=== PATIENT | male | born 1985 | race African-American/Black ===

== ENCOUNTER 2022-12-27 18:41 | Inpatient (IN) | payer MEDICAID, OTHER ==
[~2022-12-27] VITALS: Ht 177.8 cm; Wt 61.7 kg
[~2022-12-27 18:41] MED LIST: INSU100C10 SQ; INSU100C7 SQ; LISI10TA30 PO
[2022-12-27] MEDS ORDERED: IV NS 0.9% 1,000 ML BAG IV ONE ×2 (19:30→21:00)
[2022-12-27] MEDS ORDERED: HYDROCODONE/APAP 10/325MG TABLET PO ONE (19:30)
[2022-12-27] MEDS ORDERED: hydrALAZINE HCL IV 20 MG VIAL IV ONE (19:30)
[2022-12-27] MEDS ORDERED: INSULIN REGULAR, HUMAN 100 UNIT/ML 10 ML VIAL IV ONE (19:30)
[2022-12-27 20:00] LABS: BASOPHILS % (AUTO) 0.7 % (0.0-2.0); EOSINOPHILS % (AUTO) 0.2 % (0.0-6.0); HEMATOCRIT 30 % (39-51); HEMOGLOBIN 9.2 g/dL (13.5-17.5); LYMPHOCYTES # (AUTO) 0.5 K/uL (0.8-4.8); LYMPHOCYTES % (AUTO) 10.6 % (20.0-44.0); MEAN CORPUSCULAR HGB CONC 31 g/dl (31.0-36.0); MEAN CORPUSCULAR VOLUME 84 fL (80-96); MONOCYTES # (AUTO) 0.3 K/uL (0.1-1.30); MONOCYTES % (AUTO) 5.9 % (2.0-12.0); NEUTROPHILS # (AUTO) 4.3 K/uL (1.8-8.9); NEUTROPHILS % (AUTO) 82.6 % (43.0-81.0); PLATELET COUNT (AUTO) 109 K/uL (150-450); RED BLOOD CELL COUNT(AUTO) 3.52 MIL/uL (4.5-6.0); WHITE BLOOD COUNT (AUTO) 5.2 K/uL (4.3-11.0)
[2022-12-27] MEDS ORDERED: hydrALAZINE HCL IV 20 MG VIAL ONE (20:00)
[2022-12-27] MEDS ORDERED: HYDROCODONE/APAP 10/325MG TABLET ONE (20:00)
--- NOTE | 2022-12-27 20:00 | NUR ---
BIBRA FROM THE STREETS C/O GENERALIZED WEAKNESS, MISSED DIALYSIS X 1 WEEK HYPERTENSIVE, BG READING HIGH IN THE FIELD. PLACED IN BED, AAOX4, BREATHING EVEN AND UNLABORED SATURATING AT 97%RA
[2022-12-27] MEDS ORDERED: INSULIN REGULAR, HUMAN 100 UNIT/ML 10 ML VIAL ONE (20:01)
[2022-12-27 20:19] LABS: ALANINE AMINOTRANSFERASE 51 U/L (12-78); ALBUMIN 3.4 g/dL (3.4-5.0); ALKALINE PHOSPHATASE 130 U/L (46-116); ASPARTATE AMINOTRANSFERASE 30 U/L (15-37); BILIRUBIN,DIRECT 0.1 mg/dL (0.0-0.2); BILIRUBIN,TOTAL 0.3 mg/dL (0.2-1.0); CALCIUM, SERUM 8.1 mg/dL (8.5-10.1); CARBON DIOXIDE 25 mmol/L (21-32); CHLORIDE 95 mmol/L (98-107); POTASSIUM 4.4 mmol/L (3.5-5.1); SODIUM SERUM 134 mmol/L (136-145); TOTAL PROTEIN, SERUM 7.6 g/dL (6.4-8.2); UREA NITROGEN, BLOOD 55 mg/dL (7-18)
[2022-12-27 20:30] LABS: CREATININE 8.7 mg/dL (0.6-1.3); GLUCOSE 656 mg/dL (74-106)
--- NOTE | 2022-12-27 20:55 | NUR ---
SWAB FOR COVID19 SENT TO LAB
--- NOTE | 2022-12-27 21:48 | NUR ---
DR. KRYSTAL LÓPEZ SPEAKING TO LUPE MANCINI NP REGARDING ADMISSION
[2022-12-27] MEDS ORDERED: MAG HYDROX/AL HYDROX/SIMETH 30 ML UDC PO PRN (22:30)
[2022-12-27] MEDS ORDERED: MAGNESIUM HYDROXIDE 30 ML UDC PO PRN (22:30)
[2022-12-27] MEDS ORDERED: HYDROCODONE/APAP 10/325MG TABLET PO PRN (22:30)
[2022-12-27] MEDS ORDERED: Z GUARD REMEDY 4 OZ OINT TP PRN (22:30)
[2022-12-27] MEDS ORDERED: ACETAMINOPHEN 325 MG TABLET PO PRN (22:30)
[2022-12-27] MEDS ORDERED: ZOLPIDEM TARTRATE 5 MG TABLET PO PRN (22:30)
--- NOTE | 2022-12-27 22:56 | NUR ---
REPORT GIVEN TO BETITO RN ROOM 304-2 FOR JESSICA
[2022-12-27 23:11] VITALS: BP 180/96
--- NOTE | 2022-12-27 23:30 | NUR ---
ADMISSION NOTES PATIENT BROUGHT IN UNIT AT AROUND 2311 ACCOMPANIED BY 2 ER PERSONNEL VIA STRETCHER. PATIENT IS A/OX4. NO S/S OF APPARENT DISTRESS IN ROOM AIR. C/O PAIN AND TO QUOTE "I NEED TO TALK TO THE DOCTOR ABOUT MY PAIN MEDS, BECAUSE THE NORCO IS NOT CUTTING IT". PATIENT READING NSR ON THE TELE MONITOR. LEFT AV FISTULA THRILL FELT AND BRUIT HEARD UPON AUSCULTATION. WISHES TO BE FULL CODE AT THIS TIME. BELONGINGS CHECKED AND SIGNED FOR. NEW ID BAND ON PATIENT. RT. ARM IV #18G NOTED RUNNING NS OPEN TO GRAVITY FROM ER. PATIENT ORIENTED IN THE UNIT AND THE USE OF CALL LIGHT. PER PATIENT HE IS UP-TO-DATE WITH HIS VACCINATIONS INCLUDING COVID. DENIES SMOKING AND DRINKING ALCOHOL. WISH TO BE PLACED IN A SNF-- PER PATIENT HE RENTS A ROOM BUT NEEDS SOMEONE TO TAKE CARE OF HIM BECAUSE HE IS DISABLED. NEEDING HD CHAIR TIME WELL. ALL NEEDS ATTENDED. SAFETY IN PLACE. WILL FOLLOW THROUGH DOCTOR'S ORDERS AND CONTINUE WITH THE PATIENT'S PLAN OF CARE.
--- NOTE | 2022-12-27 23:37 | NUR ---
noc rn note Hospitalist Silvia Argueta made aware of BP 180/96 upon admission. Verbal order received of Apresoline 10mg IV ONCE.
--- NOTE | 2022-12-27 23:53 | NUR ---
noc rn note Hospitalist talked to patient at bedside. Verbal order for ONE time Dilaudid 1mg IV received. order read back. awaiting pharmacy to verify med.
[2022-12-28] MEDS ORDERED: HYDROMORPHONE 1 MG/1 ML DISP.SYRIN IV ONE
[2022-12-28] MEDS ORDERED: hydrALAZINE HCL IV 20 MG VIAL IV ONE
[2022-12-28 01:02] VITALS: BP 152/82
--- NOTE | 2022-12-28 01:02 | NUR ---
noc rn note - bp re-assessment BP 152/82 after Apresoline.
[2022-12-28] MEDS: ONDANSETRON HCL/PF 4 MG/2 ML VIAL IVP PRN (03:05)
--- NOTE | 2022-12-28 03:05 | NUR ---
noc rn note patient had x1 emesis just now. given Zofran 4mg as ordered PRN. will re-assess.
[2022-12-28] MEDS ORDERED: DEXTROSE 50%-WATER 50 ML DISP.SYRIN IV PRN (03:30)
[2022-12-28 04:00] VITALS: BP 148/98
[2022-12-28] MEDS: BLOOD SUGAR DIAGNOSTIC 1 EACH STRIP VI SCH ×4 (06:35→21:59)
[2022-12-28] MEDS: INSULIN REGULAR, HUMAN 100 UNIT/ML 3 ML VIAL SQ PRN ×3 (06:37→16:39)
--- NOTE | 2022-12-28 06:49 | NUR ---
noc rn closing note patient sleeping comfortably in bed. no s/s of apparent distress. pain managed with medication. Nausea and vomiting relieved with medication. rt. fa 18g intact and patent on saline lock only. reading NSR throughout shift. all needs attended. all scheduled medication administered. safety in place. endorse to morning shift rn for continuity of care.
--- NOTE | 2022-12-28 07:40 | NUR ---
MANAGER ADULT OPENING NOTE RECEIVED PATIENT ASLEEP IN BED, EASILY AWAKENED. A/OX4. ABLE TO MAKE NEEDS KNOWN. BREATHING EVEN AND NON-LABORED ON RA. NO S/S OF DISTRESS NOTED AT THIS TIME. NO C/O PAIN OR DISCOMFORT AT THIS TIME. IV ACCESS R FA #18G, INTACT AND PATENT, SL. SAFETY MEASURES IN PLACE: BED LOCKED AND AT LOWEST POSITION, RAILS UP X2, CALL ELLISON WITHIN REACH. WILL CONTINUE TO MONITOR AND ASSIST.
[2022-12-28 08:00] VITALS: BP 158/92
[2022-12-28 09:44] LABS: BASOPHILS # (AUTO) 0.1 K/uL (0.0-0.2); BASOPHILS % (AUTO) 0.9 % (0.0-2.0); EOSINOPHILS % (AUTO) 2.1 % (0.0-6.0); HEMATOCRIT 25 % (39-51); LYMPHOCYTES # (AUTO) 1.1 K/uL (0.8-4.8); LYMPHOCYTES % (AUTO) 20.1 % (20.0-44.0); MEAN CORPUSCULAR HGB CONC 33 g/dl (31.0-36.0); MEAN CORPUSCULAR VOLUME 83 fL (80-96); MONOCYTES # (AUTO) 0.4 K/uL (0.1-1.30); MONOCYTES % (AUTO) 7.3 % (2.0-12.0); NEUTROPHILS # (AUTO) 3.8 K/uL (1.8-8.9); NEUTROPHILS % (AUTO) 69.6 % (43.0-81.0); PLATELET COUNT (AUTO) 107 K/uL (150-450); RED BLOOD CELL COUNT(AUTO) 2.95 MIL/uL (4.5-6.0); WHITE BLOOD COUNT (AUTO) 5.4 K/uL (4.3-11.0)
--- NOTE | 2022-12-28 10:16 | NUR ---
WOUND CARE CONSULT: PT PRESENTS WITH DRY ULCERS TO BILATERAL FEET, PRESENT ON ADMISSION. DR COULTER CALLED FOR DPM CONSULT. IN AGREEMENT WITH PLAN OF CARE.
[2022-12-28 10:21] LABS: CALCIUM, SERUM 7.5 mg/dL (8.5-10.1); MAGNESIUM 1.9 mg/dL (1.8-2.4); PHOSPHORUS 4.6 mg/dL (2.5-4.9); POTASSIUM 3.7 mmol/L (3.5-5.1)
[2022-12-28] MEDS: HYDROMORPHONE 1 MG/1 ML DISP.SYRIN IV PRN ×4 (10:30→23:34)
--- NOTE | 2022-12-28 10:30 | NUR ---
RN NOTE PATIENT WAS COMPLAINING OF HAVING BACK PAIN. OFFERED HIM NORCO, PT STATED HE WILL GET NAUSEOUS WITH NORCO. REQUESTED DILAUDID. DR SOTO NOTIFIED. ORDERED DILAUDID 1MG IV PRN Q4H. ADMINISTERED DILAUDID TO PT. WILL CONTINUE TO MONITOR.
[2022-12-28 10:31] LABS: CREATININE 8.8 mg/dL (0.6-1.3)
[2022-12-28 12:00] VITALS: BP 132/91
--- NOTE | 2022-12-28 14:46 | NUR ---
SS Consult: ss Consult requested for homelessness. The pt. is a 37-year-old Black male pt. who is currently admitted to [facility] due to ESRD HD per EMR. Upon SS consult, the pt. is Alert & Oriented x 4 and makes avoidant eye contact. The pt. appears unkempt. Pt. has irritable mood & affect. Pt.s speech is low and clear.Pt. screams his answers at times when he becomes upset. Pt. was cooperative throughout interview and presents guarded. The pt. denies SI/HI and denies hallucinations. SW explored pt.s living situation. Patient states she is currently residing in shared housing where he rents a room [[address] [address]]. SW explored pt.s mental health Hx. Pt. denies any mental health Hx. SW explored pt.s drug & ETOH use. Pt. denies drug use and alcohol. Per pt. he normally ambulates independently but has been having trouble walking due to weakness. Pt. states he receives food stamps and SSI. Plan: Per pt. he would like SNF placement. SW notified Irene ELMORE. Pt. is in need of HD chair time. The pt. states if he does not qualify for SNF the pt. will be returning back to his home [[address] [address]] where he rents a room. Pt. stated he is not in need of any referrals/ resources. Addendum: 12/28/22 at 1451 by QUIQUE DONG IKER discussed with pt.'s nurseShila.
[2022-12-28 15:57] VITALS: BP 155/100
[2022-12-28] MEDS: GENTAMICIN 0.1% OINT 15 GM TUBE TP SCH (16:15)
[2022-12-28] MEDS: AMMONIUM LACTATE 227 GM BOTTLE TP SCH (16:16)
--- NOTE | 2022-12-28 18:30 | NUR ---
COUNSELOR/ART THERAPIST CLOSING NOTE PATIENT RESTING IN BED. A/OX4. ABLE TO MAKE NEEDS KNOWN. BREATHING EVEN AND NON-LABORED ON RA. NO S/S OF DISTRESS NOTED AT THIS TIME. NO C/O PAIN OR DISCOMFORT AT THIS TIME. SCHEDULE MEDICATION ADMINISTERED. IV ACCESS R FA #18G, INTACT AND PATENT, SL. PT IS ON EXTERNAL FLUID DYNAMICIST READING SR AT 83 BPM. SAFETY MEASURES IN PLACE: BED LOCKED AND AT LOWEST POSITION, RAILS UP X2, CALL ELLISON WITHIN REACH. WILL ENDORSE TO NEXT SHIFT FOR JESSICA.
--- NOTE | 2022-12-28 19:15 | NUR ---
RECEIVED PATIENT LAYING IN BED AWAKE. A/OX 4. BREATHING EVEN AND NON-LABORED ON ROOM AIR. NOT IN APPARENT DISTRESS. C/O CHRONIC LOWER BACK PAIN 08/30. ON TELE MONITOR READING SINUS RHYTHM AT 80 BPM. HAS RIGHT UPPER ARM IV ACCESS #18G AND SALINE LOCKED. NO S/S OF INFILTRATION NOTED. HAS LEFT UPPER ARM AV FISTULA. THRILLS AND BRUITS PRESENT. PER PATIENT, HE IS OLIGURIC. SAFETY PRECAUTIONS IN PLACE: BED LOCKED AND IN LOW POSITION, SIDE RAILS UP X2, CALL LIGHT WITHIN REACH. WILL CONTINUE PLAN OF CARE.
--- NOTE | 2022-12-28 19:20 | NUR ---
ADMINISTERED PRN DILAUDID 1MG. TOLERATED WELL.
[2022-12-28 20:26] VITALS: BP 184/104
--- NOTE | 2022-12-28 20:56 | NUR ---
BP 184/104 AT 1930 WHILE PATIENT WAS IN PAIN 08/30. GIVEN PRN DILAUDID 1MG. RECHECKED BP MANUALLY AT 2029 160/100. HD ORDER HAS BEEN GIVEN BUT NOT YET DONE. NOTIFIED HOSPITALIST GIANFRANCO SCHWAB AND ORDERED TO JUST WAIT FOR HD.
[2022-12-28] MEDS: INSULIN GLARGINE, 100 UNIT/ML CARTRIDGE SQ SCH (22:00)
[2022-12-28] MEDS: *INSULIN REGULAR(HUMULIN R)HUM 100 UNIT/ML VIAL SQ PRN (22:00)
--- NOTE | 2022-12-28 22:12 | NUR ---
BS 94, NO REGULAR INSULIN AND LANTUS COVERAGE GIVEN. PATIENT ASKED FOR SNACKS, GIVEN PUDDING AND TUNA SANDWICH. ASKED ANAHY COOK IF I CAN GIVE THE LANTUS, SHE SAID TO HOLD.
--- NOTE | 2022-12-28 23:34 | NUR ---
C/O CHRONIC LOWER BACK PAIN AGAIN 08/30. ADMINISTERED PRN DILAUDID 1MG PER MD ORDER.
[2022-12-29 00:14] VITALS: BP 178/103
[2022-12-29] MEDS: HYDROMORPHONE 1 MG/1 ML DISP.SYRIN IV PRN ×5 (03:39→20:17)
--- NOTE | 2022-12-29 03:55 | NUR ---
PATIENT REQUESTED FOR HIS PRN DILAUDID 1MG. STILL C/O LOWER BACK PAIN 07/31. GIVEN AND TOLERATED WELL.
--- NOTE | 2022-12-29 04:00 | NUR ---
SPOKE WITH RN HOLIDAY DETECTOR OPERATOR AT 0145 TO CONFIRM THAT PATIENT WILL HAVE HIS HD. SHE SAID THAT SHE HAS THE LIST AND CONFIRMED IT. DIALYSIS NURSE HAS NOT YET ARRIVED AT THIS TIME. BP 164/106
[2022-12-29 04:03] VITALS: BP 164/106
[2022-12-29 06:05] LABS: CALCIUM, SERUM 7.8 mg/dL (8.5-10.1); MAGNESIUM 2.3 mg/dL (1.8-2.4); PHOSPHORUS 5.1 mg/dL (2.5-4.9); POTASSIUM 4.1 mmol/L (3.5-5.1)
[2022-12-29 06:12] LABS: CREATININE 9.1 mg/dL (0.6-1.3)
[2022-12-29] MEDS: BLOOD SUGAR DIAGNOSTIC 1 EACH STRIP VI SCH ×4 (06:40→22:57)
[2022-12-29] MEDS: INSULIN REGULAR, HUMAN 100 UNIT/ML 3 ML VIAL SQ PRN ×3 (06:41→17:27)
--- NOTE | 2022-12-29 06:45 | NUR ---
COLLATERAL CLERK CLOSING NOTES - PATIENT SLEEPING IN BED, EASY TO AROUSE. ABLE TO VERBALIZE NEEDS. NO SOB OR NOTED. NO ACUTE DISTRESS THROUGHOUT THE NIGHT. NO C/O PAIN OR DISCOMFORT AT THIS TIME. AFEBRILE. ON TELE MONITOR READING SINUS RHYTHM AT 78 BPM. RIGHT UPPER ARM IV ACCESS INTACT, PATENT AND FLUSHING. ALL DUE MEDS GIVEN AND NEEDS ATTENDED. SAFETY PRECAUTIONS MAINTAINED. WILL ENDORSE TO NEXT SHIFT FOR JESSICA.
[2022-12-29 08:00] VITALS: BP 133/95
--- NOTE | 2022-12-29 08:12 | NUR ---
HOME SECURITY ALARM INSTALLER OPENING NOTE RECEIVED PATIENT AWAKE IN BED, C/O7/10 LOW BACK PAIN. A/OX4. TELEMONITOR SHOWING SR WITH HR = 88 BPM. ABLE TO MAKE NEEDS KNOWN. BREATHING EVEN AND NON-LABORED ON RA. NO S/S OF DISTRESS NOTED AT THIS TIME. IV ACCESS RIGHT FA #18G, INTACT AND PATENT, SL. GIVEN DILAUDID 1 MG IV PRN PAIN. WILL RE-ASSESS COMFORT LEVEL. SAFETY MEASURES IN PLACE: BED LOCKED AND AT LOWEST POSITION, RAILS UP X2, CALL ELLISON WITHIN REACH. WILL CONTINUE TO MONITOR AND ASSIST PER MD POC.
[2022-12-29] MEDS: AMMONIUM LACTATE 227 GM BOTTLE TP SCH ×2 (09:52→17:28)
[2022-12-29] MEDS: GENTAMICIN 0.1% OINT 15 GM TUBE TP SCH ×2 (09:52→17:28)
[2022-12-29 10:15] LABS: BASOPHILS # (AUTO) 0.1 K/uL (0.0-0.2); EOSINOPHILS % (AUTO) 3.1 % (0.0-6.0); HEMATOCRIT 29 % (39-51); HEMOGLOBIN 9.2 g/dL (13.5-17.5); LYMPHOCYTES # (AUTO) 1.7 K/uL (0.8-4.8); LYMPHOCYTES % (AUTO) 25.4 % (20.0-44.0); MEAN CORPUSCULAR HGB CONC 32 g/dl (31.0-36.0); MEAN CORPUSCULAR VOLUME 85 fL (80-96); MONOCYTES # (AUTO) 0.4 K/uL (0.1-1.30); MONOCYTES % (AUTO) 6.7 % (2.0-12.0); NEUTROPHILS # (AUTO) 4.3 K/uL (1.8-8.9); NEUTROPHILS % (AUTO) 63.8 % (43.0-81.0); PLATELET COUNT (AUTO) 128 K/uL (150-450); RED BLOOD CELL COUNT(AUTO) 3.43 MIL/uL (4.5-6.0); WHITE BLOOD COUNT (AUTO) 6.7 K/uL (4.3-11.0)
[2022-12-29] MEDS: ONDANSETRON HCL/PF 4 MG/2 ML VIAL IVP PRN (11:32)
[2022-12-29 12:00] VITALS: BP 159/109
[2022-12-29 16:00] VITALS: BP 188/107
[2022-12-29] MEDS ORDERED: NEPRO VAN 237 ML CAN PO PRN (17:00)
--- NOTE | 2022-12-29 18:51 | NUR ---
LACING OPERATOR CLOSING NOTE: PATIENT SLEEPING IN BED, EASY TO AROUSE. ABLE TO VERBALIZE NEEDS. NO SOB OR NOTED. NO ACUTE DISTRESS THROUGHOUT THE NIGHT. NO C/O PAIN OR DISCOMFORT AT THIS TIME. AFEBRILE. ON TELE MONITOR READING SINUS RHYTHM IN 70S. RIGHT UPPER ARM IV ACCESS INTACT, PATENT AND FLUSHING. ALL DUE MEDS GIVEN AND NEEDS ATTENDED. SAFETY PRECAUTIONS MAINTAINED. pATIENT UNABLE TO COMPLETE HEMODIALYSIS DURING DAY SHIFT TODAY DUE TO TOO HIGH ARTERIAL PRESSURE. VARNISHER DR. MANDA PENALOZA. ALSO TEXTED LION SOTO DNP (HOSPITALIST) TO ASK FOR PRN ANTI-HYPERTENSIVE MEDICATION, PENDING REPLY FROM DR. SOTO. WILL ENDORSE TO NEXT SHIFT FOR JESSICA.
--- NOTE | 2022-12-29 19:00 | NUR ---
RN OPENING NOTES PT IS AWAKE, A/O X 4, ABLE TO MAKE NEEDS KNOWN. ORIENTED TO STAFF AND UNIT. PT IS IN RA,TOLERATING WELL, BREATHING EVEN & UNLABORED @ THIS TIME. PT W/ IV ON GRUPO #18G SALINE LOCK, PATENT, INTACT & FLUSHES WELL, NO S/S OF INFILTRATION @SITE NOTED. LEFT AV FISTULA IS IN PLACE W/ BRUIT & THRILL NOTED. NURSE REVIEWER IN PLACE W/ CURRENT READING OF SR HR AT 81. SKIN IS WARM AND DRY. SAFETY MEASURES INITIATED, BED IN LOWEST AND LOCKED POSITION, SIDERAILS UP X 2. BEDSIDE TABLE AND CALL LIGHT IS WITHIN REACH. WILL CONTINUE TO MONITOR PT ACCORDINGLY.
[2022-12-29 20:00] VITALS: BP 184/114
--- NOTE | 2022-12-29 20:39 | NUR ---
RN notes Pt's am nurse Amauri, RN informed and notified Dr. Luke Uribe. BROWN Baugh informed to MD and am nurse that Pt's BP was elevated and no PRN meds. Received ordered from Dr. Uribe for Hydralazine 50 mg/po/Q4 Hr/ prn SBP> 166. Ordered carry out.
[2022-12-29] MEDS: *INSULIN REGULAR(HUMULIN R)HUM 100 UNIT/ML VIAL SQ PRN (22:59)
--- NOTE | 2022-12-29 22:59 | NUR ---
RN notes Pt's blood sugar HS was 150. Pt refuses regular insulin but only wants to take lantus. Explained risks and benefits. Snacks is provided. Will continue to monitor.
[2022-12-29] MEDS: INSULIN GLARGINE, 100 UNIT/ML CARTRIDGE SQ SCH (23:08)
[2022-12-30] VITALS (8 sets, daily range): BP systolic 157–185; BP diastolic 92–114
[2022-12-30] MEDS: HYDROMORPHONE 1 MG/1 ML DISP.SYRIN IV PRN ×5 (00:48→21:30)
[2022-12-30] MEDS: hydrALAZINE HCL 50 MG TABLET PO PRN (01:11)
[2022-12-30 05:45] LABS: BASOPHILS % (AUTO) 0.9 % (0.0-2.0); EOSINOPHILS % (AUTO) 4.1 % (0.0-6.0); HEMATOCRIT 26 % (39-51); HEMOGLOBIN 8.3 g/dL (13.5-17.5); LYMPHOCYTES # (AUTO) 1.2 K/uL (0.8-4.8); LYMPHOCYTES % (AUTO) 27.4 % (20.0-44.0); MEAN CORPUSCULAR HGB CONC 32 g/dl (31.0-36.0); MEAN CORPUSCULAR VOLUME 82 fL (80-96); MONOCYTES # (AUTO) 0.3 K/uL (0.1-1.30); MONOCYTES % (AUTO) 6.2 % (2.0-12.0); NEUTROPHILS # (AUTO) 2.8 K/uL (1.8-8.9); NEUTROPHILS % (AUTO) 61.4 % (43.0-81.0); PLATELET COUNT (AUTO) 120 K/uL (150-450); RED BLOOD CELL COUNT(AUTO) 3.13 MIL/uL (4.5-6.0); WHITE BLOOD COUNT (AUTO) 4.6 K/uL (4.3-11.0)
[2022-12-30 05:58] LABS: CALCIUM, SERUM 8.1 mg/dL (8.5-10.1); PHOSPHORUS 5.3 mg/dL (2.5-4.9); POTASSIUM 3.8 mmol/L (3.5-5.1)
--- NOTE | 2022-12-30 06:47 | NUR ---
RN CLOSING NOTES PT IS AWAKE AND RESTING COMFORTABLE IN BED.IN RA.RESPONSIVE AND FOLLOWS VERBAL COMMAND. A/O X 4. NO S/S OF RESPIRATORY DISTRESS NOTED. ON TELE MONITOR WITH CURRENT READING . IV SITE GRUPO #18G SALINE LOCK. LEFT AV FISTULA IN PLACE, W/ BRUIT AND THRILL NOTED. PT IS AMBULATORY W/ BRP, WALKING INDEPENDENTLY. MEDICATION GIVEN ORDERED. SAFETY MEASURE MAINTAINED W/ BED IN ITS LOWEST AND LOCKED POSITION, BED ALARM ON, TABLE & CALL LIGHT WITHIN REACH, SIDE RAILS UP X 2. WILL ENDORSE TO THE NEXT SHIFT FOR CONTNUITY OF CARE. Addendum: 12/30/22 at 0648 by ABBIE THOMAS RN TELE READING SHOWS SR 84.
[2022-12-30] MEDS: BLOOD SUGAR DIAGNOSTIC 1 EACH STRIP VI SCH ×4 (07:28→21:42)
--- NOTE | 2022-12-30 07:35 | NUR ---
LAUNDRY PRESS OPERATOR OPENING NOTE RECEIVED PATIENT AWAKE IN BED, C/O 8/10 LOW BACK PAIN. NEXT PRN ANALGESIC NOT DUE FOR ANOTHER HOUR AND 15 MINUTES. OFFERED PATIENT COLD OR HEAT PACKS , BUT PATIENT REFUSED. OFFERED TO CALL MD TO GET ANOTHER MEDICATION ORDERED PO, BUT PT REFUSED STATING ONLY IV MEDICATION GIVES HIM PAIN RELIEF. PATIENT IS A/OX4. TELE MONITOR SHOWING SR WITH HR IN 80S . ABLE TO MAKE NEEDS KNOWN. BREATHING EVEN AND NON-LABORED ON RA. NO S/S OF DISTRESS NOTED AT THIS TIME. IV ACCESS RIGHT FA #18G, INTACT AND PATENT, SL. SAFETY MEASURES IN PLACE: BED LOCKED AND AT LOWEST POSITION, RAILS UP X2, CALL ELLISON WITHIN REACH. WILL CONTINUE TO MONITOR AND ASSIST PER MD POC.
[2022-12-30] MEDS: GENTAMICIN 0.1% OINT 15 GM TUBE TP SCH ×2 (08:47→17:01)
[2022-12-30] MEDS: AMMONIUM LACTATE 227 GM BOTTLE TP SCH ×2 (08:47→17:01)
[2022-12-30] MEDS: AMLODIPINE BESYLATE 5 MG TABLET PO SCH (12:33)
[2022-12-30] MEDS: INSULIN REGULAR, HUMAN 100 UNIT/ML 3 ML VIAL SQ PRN (12:43)
[2022-12-30] MEDS: *INSULIN REGULAR(HUMULIN R)HUM 100 UNIT/ML VIAL SQ PRN ×2 (17:13→22:01)
--- NOTE | 2022-12-30 20:56 | NUR ---
RN OPENING NOTE PT IS AWAKE, A/O X 4, ABLE TO MAKE NEEDS KNOWN. ORIENTED TO STAFF & UNIT. PT IN RA, TOLERATING WELL, BREATHING EVEN AND UNLABORED @ THIS TIME. PT W/ IV ACCESS PRESENT @ GRUPO #18g SL, PATENT, INTACT & FLUSHES WELL. NO S/S OF INFILTRATION NOTED.AV FISTULA PRESENT IN [place], BRUITS AND THRILL NOTED, W/ NO BLEEDING ON SITE. ROUGHER OPERATOR IS IN PLACE WITH CURRENT READING OF SR, HR 80. SAFETY MEASURES INITIATED, BED IN ITS LOWEST AND LOCKED POSITION, BED ALARM ON, SIDERAILS UP X 2. BEDSIDE TABLE AND CALL LIGHT EASY TO REACH. TO CONTINUE TO MONITOR PT ACCORDINGLY. Addendum: 12/30/22 at 2102 by ABBIE THOMAS RN OPENING NOTES @ 190
[2022-12-30] MEDS: INSULIN GLARGINE, 100 UNIT/ML CARTRIDGE SQ SCH (21:52)
[2022-12-31 00:41] VITALS: BP 185/106
[2022-12-31] MEDS: hydrALAZINE HCL 50 MG TABLET PO PRN ×2 (01:35→08:48)
[2022-12-31] MEDS: HYDROMORPHONE 1 MG/1 ML DISP.SYRIN IV PRN ×6 (01:43→22:43)
[2022-12-31 04:11] VITALS: BP 150/98
[2022-12-31] MEDS: BLOOD SUGAR DIAGNOSTIC 1 EACH STRIP VI SCH ×4 (06:30→21:55)
[2022-12-31] MEDS: *INSULIN REGULAR(HUMULIN R)HUM 100 UNIT/ML VIAL SQ PRN ×2 (06:31→21:55)
--- NOTE | 2022-12-31 06:57 | NUR ---
RN CLOSING NOTE PT IS DOZING INTERMITENTLY IN BED. RESPONSIVE AND FOLLOWS VERBAL COMMAND, A/O X 4. NO S/S OF RESPIRATORY DISTRESS NOTED. ON TELE MONITOR W/ CURRENT READING SR HR 91. IV SITE ON GRUPO #18G SL, PATENT AND FLUSHES WELL WITH NO S/S OF INFILTRATION NOTED. AV FISTULA ON [place] IS IN PLACE. PT IS KEPT CLEAN, DRY AND COMFORTABLE. SAFETY MEASURES MAINTAINED WITH BED IN LOWEST AND LOCK POSITION. BED ALARM ON. CALL LIGHT AND TABLE WITHIN REACH. SIDE RAILS UP X 2 . WILL ENDORSE TO THE NEXT SHIFT FOR CONTINUITY OF CARE.
--- NOTE | 2022-12-31 07:00 | NUR ---
STAFFING RN OPENING NOTE PATIENT LAYING IN BED, A/O X 4, ABLE TO MAKE NEEDS KNOWN, TOLERATING WELL ON ROOM AIR WITH NO S/S RESPIRATORY DISTRESS. NO COMPLAINTS OF PAIN OR DISCOMFORT AT THIS TIME. TELE MONITOR IN PLACE READING NSR 85. GRUPO # 18 SL CLEAN, INTACT, FLUSHING WELL. [place]BER[place] AV FISTULA WITH THRILL AND BRUIT NOTED. SAFETY MEASURES IN PLACE: BED IN LOWEST LOCKED POSITION, SIDE RAILS UP X 2, CALL LIGHT WITHIN REACH. WILL CONTINUE TO MONITOR.
[2022-12-31 08:00] VITALS: BP 171/110
[2022-12-31] MEDS: AMLODIPINE BESYLATE 5 MG TABLET PO SCH (08:48)
[2022-12-31] MEDS: AMMONIUM LACTATE 227 GM BOTTLE TP SCH ×2 (08:49→16:40)
[2022-12-31] MEDS: GENTAMICIN 0.1% OINT 15 GM TUBE TP SCH ×2 (08:49→16:40)
[2022-12-31 11:03] LABS: BASOPHILS % (AUTO) 0.5 % (0.0-2.0); EOSINOPHILS % (AUTO) 2.6 % (0.0-6.0); HEMATOCRIT 27 % (39-51); HEMOGLOBIN 8.4 g/dL (13.5-17.5); LYMPHOCYTES # (AUTO) 0.8 K/uL (0.8-4.8); LYMPHOCYTES % (AUTO) 20.3 % (20.0-44.0); MEAN CORPUSCULAR HGB CONC 31 g/dl (31.0-36.0); MEAN CORPUSCULAR VOLUME 83 fL (80-96); MONOCYTES # (AUTO) 0.3 K/uL (0.1-1.30); MONOCYTES % (AUTO) 7.6 % (2.0-12.0); NEUTROPHILS # (AUTO) 2.8 K/uL (1.8-8.9); PLATELET COUNT (AUTO) 116 K/uL (150-450); RED BLOOD CELL COUNT(AUTO) 3.22 MIL/uL (4.5-6.0)
[2022-12-31 11:17] LABS: CALCIUM, SERUM 7.9 mg/dL (8.5-10.1); MAGNESIUM 2.1 mg/dL (1.8-2.4); PHOSPHORUS 5.3 mg/dL (2.5-4.9); POTASSIUM 3.7 mmol/L (3.5-5.1)
[2022-12-31 11:22] LABS: CREATININE 7.9 mg/dL (0.6-1.3)
[2022-12-31 12:00] VITALS: BP 149/99
[2022-12-31 16:00] VITALS: BP 152/93
--- NOTE | 2022-12-31 18:25 | NUR ---
FILTER TIP INSPECTOR CLOSING NOTE PATIENT LAYING IN BED, A/O X 4, ABLE TO MAKE NEEDS KNOWN, TOLERATING WELL ON ROOM AIR WITH NO S/S RESPIRATORY DISTRESS. NO COMPLAINTS OF PAIN OR DISCOMFORT AT THIS TIME. TELE MONITOR IN PLACE READING NSR 94. GRUPO # 18 SL CLEAN, INTACT, FLUSHING WELL. [place] AV FISTULA WITH THRILL AND BRUIT NOTED. SAFETY MEASURES IN PLACE: BED IN LOWEST LOCKED POSITION, SIDE RAILS UP X 2, CALL LIGHT WITHIN REACH. ALL NEEDS MET. WILL ENDORSE TO COTTON CONVERTER FOR JESSICA.
--- NOTE | 2022-12-31 19:44 | NUR ---
RN OPENING NOTE PATIENT AWAKE IN BED. A/OX4. NO S/S OF DISTRESS, BREATHING WITHOUT DIFFICULTY ON ROOM AIR. GRUPO MIDLINE #18 SL INTACT AND PATENT. TELE READS SR 96. SAFETY MEASURES IN PLACE: BED LOCKED AND AT LOWEST POSITION, RAILS UP X2, CALL ELLISON WITHIN REACH. WILL CONTINUE TO MONITOR PATIENT.
[2022-12-31 20:00] VITALS: BP 151/91
[2022-12-31] MEDS: INSULIN GLARGINE, 100 UNIT/ML CARTRIDGE SQ SCH (21:55)
[2023-01-01] VITALS: BP 171/100
[2023-01-01] MEDS: HYDROMORPHONE 1 MG/1 ML DISP.SYRIN IV PRN ×4 (02:50→15:08)
[2023-01-01 04:00] VITALS: BP 162/109
--- NOTE | 2023-01-01 06:22 | NUR ---
RN CLOSING NOTE PATIENT AWAKE IN BED. A/OX4. NO S/S OF DISTRESS, BREATHING WITHOUT DIFFICULTY ON ROOM AIR. RFA #20 SL INTACT AND PATENT. TELE READS SR 82. SAFETY MEASURES IN PLACE: BED LOCKED AND AT LOWEST POSITION, RAILS UP X2, CALL ELLISON WITHIN REACH. WILL ENDORSE TO NEXT SHIFT FOR JESSICA.
[2023-01-01] MEDS: INSULIN REGULAR, HUMAN 100 UNIT/ML 3 ML VIAL SQ PRN ×2 (06:32→11:25)
[2023-01-01] MEDS: BLOOD SUGAR DIAGNOSTIC 1 EACH STRIP VI SCH ×2 (06:32→11:10)
--- NOTE | 2023-01-01 07:30 | NUR ---
RN OPENING NOTE PATIENT AWAKE IN BED. A/OX4. NO S/S OF DISTRESS, BREATHING WITHOUT DIFFICULTY ON ROOM AIR. RFA #20 SL INTACT AND PATENT. TELE READS SR 80. SAFETY MEASURES IN PLACE: BED LOCKED AND AT LOWEST POSITION, RAILS UP X2, CALL ELLISON WITHIN REACH. NO C/O OF PAIN OR DISCOMFORT AT THIS TIME. WILL CONTINUE TO MONITOR.
[2023-01-01 08:00] VITALS: BP 125/104
[2023-01-01] MEDS: AMLODIPINE BESYLATE 5 MG TABLET PO SCH (09:07)
[2023-01-01] MEDS: GENTAMICIN 0.1% OINT 15 GM TUBE TP SCH (09:08)
[2023-01-01] MEDS: AMMONIUM LACTATE 227 GM BOTTLE TP SCH (09:08)
[2023-01-01 12:00] VITALS: BP 150/107
[2023-01-01] MEDS ORDERED: HYDR-4077 PO (14:43)
[2023-01-01] MEDS ORDERED: AMLO-212 PO (14:43)
[2023-01-01] MEDS ORDERED: AMMO225L14 TP (14:43)
--- NOTE | 2023-01-01 18:01 | NUR ---
DISCHARGED NOTE PATIENT DISCHARGED TO [facility] AND [facility] HOUSINGS/SHELTERS IN STABLE CONDITION. A/O X4. ON RA, TOLERATING WELL WITH SPO2 OF 98%. NO SOB/DISTRESS NOTED. VITAL SIGNS TAKEN, STABLE AND RECORDED. PATIENT REFUSED TO TAKE PICTURES OF WOUNDS. ALL BELONGINGS ACCOUNTED TO THE PATIENT. DISCHARGED INSTRUCTIONS RELAYED TO PATIENT. IV ACCESS REMOVED WITH NO ACTIVE BLEEDING NOTED. CM MADE AN ARRANGEMENT FOR TAXI TRANSPO THAT HAS BEEN APPROVED BY YACHT RIGGER. PATIENT LEFT THE UNIT VIA WHEELCHAIR ACCOMPANIED BY JUANA CHAVES. DISCHARGED.
== END 2023-01-01 18:00 | disposition home or self-care (01) | DRG 637 ==
LOC: ER 18:51 → TELE 22:27
PROVIDERS: ADMIT Nurse Practitioner Acute Care; ATTEND Nurse Practitioner Acute Care
PROC: 5A1D70Z Performance of Urinary Filtration, Intermittent, Less than 6 Hours Per Day (ICD-10-PCS; principal; 2022-12-28)
DX: E10.65 Type 1 diabetes mellitus with hyperglycemia (principal); N18.6 End stage renal disease; I12.0 Hypertensive chronic kidney disease with stage 5 chronic kidney disease or end stage renal disease; L97.319 Non-pressure chronic ulcer of right ankle with unspecified severity; E10.22 Type 1 diabetes mellitus with diabetic chronic kidney disease; I16.0 Hypertensive urgency; Z20.822 Contact with and (suspected) exposure to COVID-19; Z91.199 Patient's noncompliance with other medical treatment and regimen due to unspecified reason; Z76.5 Malingerer [conscious simulation]; E10.621 Type 1 diabetes mellitus with foot ulcer; E10.622 Type 1 diabetes mellitus with other skin ulcer; Z91.15 Patient's noncompliance with renal dialysis; G89.29 Other chronic pain; Z88.8 Allergy status to other drugs, medicaments and biological substances; Z79.4 Long term (current) use of insulin; Z79.899 Other long term (current) drug therapy; Z59.00 Homelessness unspecified; E83.51 Hypocalcemia; L97.529 Non-pressure chronic ulcer of other part of left foot with unspecified severity; L84 Corns and callosities; Z89.432 Acquired absence of left foot; Z89.421 Acquired absence of other right toe(s); M89.8X9 Other specified disorders of bone, unspecified site; D63.8 Anemia in other chronic diseases classified elsewhere; D69.6 Thrombocytopenia, unspecified; Z99.2 Dependence on renal dialysis
CPT/HCPCS: 36415; 71045-TC; 73620-TC; 80048-TC; 80076-TC; 82962-TC; 83735-TC; 84100-TC; 84484-TC; 85025-TC; 86704; 86705; 86706; 86803; 87081-TC; 87340; 90935-TC; 97110-TC; 97112-TC; 97116-TC; 97530-TC; C9803; G0378; J0360; J1170; J1815; J2405; J7030